=== PATIENT | male | born 1955 | race Caucasian/White ===

== ENCOUNTER → 2018-11-10 | Outpatient (CLI) | payer OTHER ==
--- NOTE | 2018-11-10 16:59 | Diagnostic Imaging Report ---
INDICATION: Pleural effusion. TIME OF EXAM: 02:21 p.m. COMPARISON: No prior studies are available for comparison. FINDINGS: There is a small left effusion with some associated infiltrate or atelectasis in the left base. Left-sided rib fractures are noted. Multiple posterior rib fractures are seen, in particular the posterior fifth, sixth and seventh ribs. No pneumothorax is seen. Right lung is clear. Heart size is normal. IMPRESSION: Left rib fractures with left basilar infiltrate or atelectasis and small left effusion. Dictated by: Dictated on workstation # [id number]
== END ==
LOC: RAD 14:07
DX: S22.42XA Multiple fractures of ribs, left side, initial encounter for closed fracture (principal); J90 Pleural effusion, not elsewhere classified
CPT/HCPCS: 71046

== ENCOUNTER → 2018-11-20 | Outpatient (CLI) | payer OTHER ==
--- NOTE | 2018-11-20 14:12 | Diagnostic Imaging Report ---
Indication: Post thoracentesis. Rib fractures 2 views of the chest shows normal heart size and vascularity. There is left basilar atelectasis. There is no effusion or pneumothorax. There is irregularity of several ribs inferiorly laterally on the left consistent with fractures which are stable in alignment compared to 11/10/2018 study. Impression: Interval improved aeration left lung base and a decrease in the left-sided effusion. There is no pneumothorax. There is a stable appearance to the rib fractures. Dictated by: Dictated on workstation # [id number]
== END ==
LOC: RAD FS 13:40
DX: J90 Pleural effusion, not elsewhere classified (principal); S22.42XA Multiple fractures of ribs, left side, initial encounter for closed fracture; Z98.890 Other specified postprocedural states
CPT/HCPCS: 71046

== ENCOUNTER → 2019-03-17 | Outpatient (CLI) | payer MEDICARE, OTHER ==
--- NOTE | 2019-03-17 16:20 | Diagnostic Imaging Report ---
MRI RT UPPER EXT JOINT W/O Technique: Multiplanar, multisequence MR imaging of the right shoulder was performed without contrast. Comparison: None available. Indication: Right shoulder pain. Findings: Rotator cuff: There is a full thickness and complete tear of the supraspinatus which has the torn fibers retracted to the level of the glenohumeral joint. The anterior one half of the supraspinatus also has full-thickness tear and the fibers are retracted to the glenohumeral joint. Teres minor remains intact. Subscapularis has partial thickness interstitial delamination/tearing. Mild fatty atrophy of the supraspinatus and infraspinatus is present. Glenoid labrum: By non-arthrogram imaging, the glenoid labrum appears intact. No para-labral cyst. Long head of biceps: The intracapsular segment of the long head of the biceps is absent and there is intrasubstance tearing within the extracapsular segment of the long head of biceps. Bones and cartilage: Humeral head is normal in morphology without fracture or focal osseous lesion. No glenohumeral chondromalacia. The acromioclavicular joint is normal in alignment without significant degenerative change. Soft tissues: Small glenohumeral joint effusion. No MRI findings to suggest adhesive capsulitis. Fluid in the subacromial subdeltoid space is compatible with full-thickness rotator cuff tear. IMPRESSION: 1. Massive rotator cuff tear includes complete tear of the supraspinatus and a full-thickness tear of the anterior one half of the infraspinatus. The torn fibers are retracted to the level of the glenohumeral joint and have associated mild muscle belly atrophy. 2. High-grade partial versus complete tearing of the long head of the biceps. Dictated by: Dictated on workstation # [id number]
== END ==
LOC: RAD 13:40
PROVIDERS: ATTEND Nurse Practitioner Family
DX: S46.011A Strain of muscle(s) and tendon(s) of the rotator cuff of right shoulder, initial encounter (principal)
CPT/HCPCS: 73221